=== PATIENT | female | born 1955 | race Caucasian/White ===

== ENCOUNTER 2023-11-10 21:19 | Emergency (ER) | payer SELFPAY ==
[~2023-11-10] VITALS: Ht 149.9 cm; Wt 82.0 kg
[2023-11-10 21:29] VITALS: O2SAT 98
[2023-11-10 23:00] LABS: DIFFERENTIAL COMMENT 1; HEMATOCRIT. 40.1 % (36.0-48.0); HEMOGLOBIN. 13.4 g/dL (12.0-16.0); MEAN CORPUSCULAR HEMOGLOBIN 29.9 pg (28.0-32.0); MEAN CORPUSCULAR HGB CONC 33.5 g/dL (31.0-37.0); MEAN CORPUSCULAR VOLUME 89.3 fL (81.0-99.0); PLATELET 289 x1000/uL (130-400); RED BLOOD CELL COUNT 4.49 mill/uL (4.2-5.4); RED CELL DISTRIBUTION WIDTH 12.8 % (11.6-14.6); WHITE BLOOD COUNT 8.4 x1000/uL (4.5-11.0)
[2023-11-10] MEDS: ONDANSETRON HCL 4MG/2ML INJ IV ONE (23:00)
[2023-11-10] MEDS: ACETAMINOPHEN 325MG TABLET PO ONE (23:00)
[2023-11-10] MEDS: SODIUM CHLORIDE 0.9% 1,000 ML IV ONE (23:00)
[2023-11-10 23:04] LABS: CARBON DIOXIDE 24 mEq/L (21-32); CHLORIDE 104 mEq/L (98-107); SODIUM 137 mEq/L (136-145)
[2023-11-10 23:05] LABS: CALCIUM 9.3 mg/dL (8.7-10.4)
[2023-11-10 23:10] LABS: CREATININE 0.8 mg/dL (0.6-1.0); GLUCOSE 124 mg/dL (70-105); TROPONIN I HIGH SENSITIVITY 5 ng/L (3.0-34); UREA NITROGEN BLOOD 10 mg/dL (9-23)
[2023-11-10 23:11] LABS: ALANINE AMINOTRANSFERASE 48 IU/L (10-49)
[2023-11-10 23:12] LABS: ALBUMIN 4.6 g/dL (3.2-4.8); ASPARTATE AMINOTRANSFERASE 34 IU/L (<34); BILIRUBIN TOTAL 0.7 mg/dL (0.1-1.0); PROTEIN TOTAL 7.1 g/dL (6.0-8.3)
[2023-11-10 23:24] LABS: PLATELET ESTIMATE NORMAL
[2023-11-11] MEDS ORDERED: ONDA4TAB11 PO (00:06)
[2023-11-11 01:00] VITALS: BP 155/89; PULSE 96; RESP 18; TEMP 98.8
[2023-11-11] MEDS ORDERED: NIRM1TAB8 PO (01:07)
== END 2023-11-11 01:00 | disposition home or self-care (01) ==
LOC: ER 21:19
DX: U07.1 COVID-19 (principal); B34.9 Viral infection, unspecified; M79.18 Myalgia, other site; R68.83 Chills (without fever)
CPT/HCPCS: 99285; 96374; 71045; 96361; 87426; 80053; 83690; 85025; 84484; 87804 ×2; 36415; 93005; J2405; J7030